=== PATIENT | female | born 1955 | race African-American/Black ===

== ENCOUNTER 2016-05-24 12:42 | Emergency (ER) | payer SELFPAY ==
[2016-05-24 12:42] VITALS: BMI 45.8
[2016-05-24 14:39] VITALS: TEMP 98.4
[2016-05-24] MEDS ORDERED: LORAZEPAM 1 MG TAB PO ONE (15:09)
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
[2016-05-24] MEDS ORDERED: NITROGLYCERINE 0.4 MG TAB SL ONE (16:00)
[2016-05-24 16:21] VITALS: PULSE 58
[2016-05-24 16:38] VITALS: BP 211/112
== END 2016-05-24 16:52 | disposition home or self-care (01) ==
LOC: ED 12:42
DX: I16.0 Hypertensive urgency (principal)
CPT/HCPCS: 99284; J3490